=== PATIENT | male | born 1965 | race Caucasian/White ===

== ENCOUNTER 2017-02-16 23:50 | Inpatient (IN) | payer OTHER ==
[~2017-02-16] VITALS: Ht 172.7 cm; Wt 93.0 kg
[2017-02-17 01:16] LABS: BASOPHIL % 0.6 % (0-2); PLATELET COUNT 203 x10^3mcL (130-400); RED CELL DISTRIBUTION WIDTH 12.7 % (11.5-14.5)
[2017-02-17 01:31] LABS: CALCIUM 9.7 mg/dL (8.5-10.1); CARBON DIOXIDE 26.7 mmol/L (21-32); CHLORIDE SERUM 93 mmol/L (98-107); CREATININE SERUM 1.1 mg/dL (0.7-1.3); GFR1 > 60 mL/min; SODIUM SERUM 125 mmol/L (136-145)
[2017-02-17 01:33] LABS: ALBUMIN 3.9 g/dL (3.4-5.0); ALKALINE PHOSPHATASE 198 U/L (46-116); ALT/SGPT 32 U/L (16-63); AST/SGOT 16 U/L (15-37); BILIRUBIN TOTAL 0.74 mg/dL (0.20-1.00); TOTAL PROTEIN, SERUM 7.7 g/dL (6.4-8.2)
[2017-02-17 01:47] LABS: GLUCOSE SERUM 753 mg/dL (74-106)
[2017-02-17 03:30] LABS: LIPASE 317 IU/L (73-393); MAGNESIUM 2.1 mg/dL (1.8-2.4); PHOSPHOROUS 4.4 mg/dL (2.5-4.9)
[2017-02-17 03:31] LABS: AMYLASE 21 U/L (25-115); CHOLESTEROL 221 mg/dL (<200); CHOLESTEROL/HDL RATIO 7.4; HDL CHOLESTEROL 30 mg/dL (40-60); TRIGLYCERIDES 459 mg/dL (<150)
[2017-02-17 03:36] LABS: T3 TOTAL 1.12 ng/mL
[2017-02-17 03:48] LABS: FREE T4 1.23 ng/dL (0.76-1.46); FREE THYROXINE INDEX 3.7 ug/dL (1.4-4.5); T4(THYROXINE) 10.5 ug/dL (4.7-13.3)
[2017-02-17 03:54] VITALS: BP 122/81
[2017-02-17 06:03] VITALS: BP 113/70
[2017-02-17 09:32] VITALS: BP 97/57
[2017-02-17 14:13] VITALS: BP 117/65
[2017-02-17 17:19] VITALS: BP 106/65
[2017-02-17 17:39] LABS: CALCIUM 8.5 mg/dL (8.5-10.1); CHLORIDE SERUM 98 mmol/L (98-107); CREATININE SERUM 0.8 mg/dL (0.7-1.3); GFR1 > 60 mL/min; GLUCOSE SERUM 305 mg/dL (74-106); POTASSIUM SERUM 3.5 mmol/L (3.5-5.1); SODIUM SERUM 137 mmol/L (136-145)
[2017-02-17 20:28] LABS: microscopic required? NO
[2017-02-17 21:52] LABS: UA SPECIFIC GRAVITY 1.015 (1.005-1.035); urine erythrocyte NEGATIVE (NEGATIVE)
[2017-02-17 22:12] VITALS: BP 103/61
[2017-02-18 06:05] VITALS: BP 103/54
[2017-02-18 06:30] LABS: BASOPHIL % 0.7 % (0-2); PLATELET COUNT 186 x10^3mcL (130-400); RED CELL DISTRIBUTION WIDTH 12.7 % (11.5-14.5)
[2017-02-18 06:49] LABS: CALCIUM 8.5 mg/dL (8.5-10.1); CARBON DIOXIDE 28.9 mmol/L (21-32); CHLORIDE SERUM 108 mmol/L (98-107); CREATININE SERUM 0.8 mg/dL (0.7-1.3); GFR1 > 60 mL/min; GLUCOSE SERUM 150 mg/dL (74-106); MAGNESIUM 1.8 mg/dL (1.8-2.4); PHOSPHOROUS 3.4 mg/dL (2.5-4.9); POTASSIUM SERUM 3.5 mmol/L (3.5-5.1); SODIUM SERUM 144 mmol/L (136-145)
[2017-02-18 08:30] VITALS: BP 122/76
[2017-02-18 09:54] VITALS: BP 122/76
[2017-02-18] MEDS ORDERED: LIPI10 PO (11:03)
[2017-02-18] MEDS ORDERED: METFORMIN HCL1000 MG PO (11:04)
[2017-02-18] MEDS ORDERED: LEVEMIR100 U/M1 SC (11:10)
[2017-02-18 12:53] VITALS: BP 124/76
== END 2017-02-18 16:15 | disposition home or self-care (01) | DRG 638 ==
LOC: ED 23:50 → DU 02-17 02:24 → MU 02-17 02:24 → DU 02-17 03:29 → MU 02-17 05:47 → DU 02-17 10:32
PROVIDERS: Emergency Medicine; ADMIT Family Medicine
DX: E11.65 Type 2 diabetes mellitus with hyperglycemia (principal); E87.1 Hypo-osmolality and hyponatremia; E78.5 Hyperlipidemia, unspecified; E87.8 Other disorders of electrolyte and fluid balance, not elsewhere classified; E66.9 Obesity, unspecified; Z68.31 Body mass index [BMI] 31.0-31.9, adult; Z89.421 Acquired absence of other right toe(s); Z83.3 Family history of diabetes mellitus; G90.9 Disorder of the autonomic nervous system, unspecified
CPT/HCPCS: 83880; 84439; J1815; J7030; Q0092

== ENCOUNTER → 2017-05-09 | Outpatient (CLI) | payer OTHER ==
[~2017-05-09] MED LIST: LEVEMIR100 U/M1 SC; LIPI10 PO; METFORMIN HCL1000 MG PO
[2017-05-09 11:11] LABS: BASOPHIL % 0.8 % (0-2); PLATELET COUNT 223 x10^3mcL (130-400); RED CELL DISTRIBUTION WIDTH 13.2 % (11.5-14.5)
[2017-05-09 11:20] LABS: ALBUMIN 4.1 g/dL (3.4-5.0); ALKALINE PHOSPHATASE 97 U/L (46-116); ALT/SGPT 34 U/L (16-63); AST/SGOT 34 U/L (15-37); BILIRUBIN TOTAL 0.7 mg/dL (0.20-1.00); CALCIUM 9.5 mg/dL (8.5-10.1); CARBON DIOXIDE 29.5 mmol/L (21-32); CHLORIDE SERUM 103 mmol/L (98-107); CREATININE SERUM 0.8 mg/dL (0.7-1.3); GFR1 > 60 mL/min; GLUCOSE SERUM 95 mg/dL (74-106); HDL CHOLESTEROL 53 mg/dL (40-60); SODIUM SERUM 142 mmol/L (136-145); TOTAL PROTEIN, SERUM 8.1 g/dL (6.4-8.2); TRIGLYCERIDES 46 mg/dL (<150)
[2017-05-09 11:21] LABS: CHOLESTEROL 118 mg/dL (<200); CHOLESTEROL/HDL RATIO 2.2
[2017-05-09 15:13] LABS: T3 TOTAL 1.12 ng/mL
[2017-05-09 15:54] LABS: FREE T4 0.99 ng/dL (0.76-1.46); FREE THYROXINE INDEX 3.2 ug/dL (1.4-4.5); T4(THYROXINE) 9.6 ug/dL (4.7-13.3)
[2017-05-10 10:51] LABS: microalbumin:creatinine ratio 4.6 (0.0-30.0)
== END | disposition home or self-care (01) ==
LOC: LB 10:41
PROVIDERS: Family Medicine
DX: E11.9 Type 2 diabetes mellitus without complications (principal)
CPT/HCPCS: 84439

== ENCOUNTER 2017-05-15 19:38 | Emergency (ER) | payer OTHER ==
[2017-05-15 21:21] VITALS: BP 119/75
== END 2017-05-15 21:21 | disposition home or self-care (01) ==
LOC: ED 19:38
DX: L72.3 Sebaceous cyst (principal); E11.9 Type 2 diabetes mellitus without complications
CPT/HCPCS: J1885

== ENCOUNTER 2017-05-22 19:32 | Inpatient (IN) | payer OTHER, MEDICAID ==
[~2017-05-22] VITALS: Ht 172.7 cm; Wt 82.2 kg
[2017-05-22] MEDS ORDERED: FARXIGA5 MG PO (20:42)
[2017-05-22] MEDS ORDERED: LEVOFLOXACIN500 M1 PO (20:42)
[2017-05-22 20:43] LABS: BASOPHIL % 0.6 % (0-2); PLATELET COUNT 232 x10^3mcL (130-400); RED CELL DISTRIBUTION WIDTH 13.3 % (11.5-14.5)
[2017-05-22] MEDS ORDERED: CLEOCIN HCL300 MG PO (20:43)
[2017-05-22 20:51] LABS: CALCIUM 9.6 mg/dL (8.5-10.1); CARBON DIOXIDE 30.1 mmol/L (21-32); CHLORIDE SERUM 101 mmol/L (98-107); CREATININE SERUM 0.9 mg/dL (0.7-1.3); GFR1 > 60 mL/min; GLUCOSE SERUM 105 mg/dL (74-106); POTASSIUM SERUM 3.5 mmol/L (3.5-5.1); SODIUM SERUM 138 mmol/L (136-145)
[2017-05-22 20:57] LABS: ALBUMIN 3.8 g/dL (3.4-5.0); ALKALINE PHOSPHATASE 99 U/L (46-116); ALT/SGPT 25 U/L (16-63); AST/SGOT 16 U/L (15-37); BILIRUBIN TOTAL 0.5 mg/dL (0.20-1.00)
[2017-05-22 21:19] LABS: FREE T4 1.02 ng/dL (0.76-1.46); FREE THYROXINE INDEX 3.3 ug/dL (1.4-4.5); T4(THYROXINE) 9.4 ug/dL (4.7-13.3)
[2017-05-22 21:20] LABS: CHOLESTEROL/HDL RATIO 3.7; PHOSPHOROUS 4.3 mg/dL (2.5-4.9)
[2017-05-22 21:22] LABS: T3 TOTAL 1.12 ng/mL
[2017-05-22 21:39] VITALS: BP 103/67
[2017-05-22 21:43] VITALS: Ht 172.7 cm; Wt 82.2 kg
[2017-05-22 21:48] VITALS: BP 103/67
[2017-05-23 05:00] LABS: microscopic required? YES; urine erythrocyte TRACE (NEGATIVE)
[2017-05-23 05:30] VITALS: BP 103/66
[2017-05-23 06:23] LABS: CALCIUM 9.1 mg/dL (8.5-10.1); CARBON DIOXIDE 28.5 mmol/L (21-32); CHLORIDE SERUM 107 mmol/L (98-107); CREATININE SERUM 0.9 mg/dL (0.7-1.3); GFR1 > 60 mL/min; GLUCOSE SERUM 95 mg/dL (74-106); POTASSIUM SERUM 3.9 mmol/L (3.5-5.1); SODIUM SERUM 141 mmol/L (136-145)
[2017-05-23 06:27] LABS: BASOPHIL % 0.8 % (0-2); PLATELET COUNT 220 x10^3mcL (130-400); RED CELL DISTRIBUTION WIDTH 12.9 % (11.5-14.5)
[2017-05-23 10:16] VITALS: BP 105/67
[2017-05-23 14:11] VITALS: BP 103/70
[2017-05-23 18:00] VITALS: BP 109/76
[2017-05-23 21:01] VITALS: BP 109/70
[2017-05-24 06:07] VITALS: BP 97/61
[2017-05-24 06:14] LABS: CHLORIDE SERUM 108 mmol/L (98-107); CREATININE SERUM 0.8 mg/dL (0.7-1.3); GFR1 > 60 mL/min; GLUCOSE SERUM 84 mg/dL (74-106); MAGNESIUM 2.1 mg/dL (1.8-2.4); PHOSPHOROUS 3.2 mg/dL (2.5-4.9); POTASSIUM SERUM 3.6 mmol/L (3.5-5.1); SODIUM SERUM 144 mmol/L (136-145)
[2017-05-24 06:15] LABS: BASOPHIL % 0.9 % (0-2); PLATELET COUNT 216 x10^3mcL (130-400); RED CELL DISTRIBUTION WIDTH 13.2 % (11.5-14.5)
[2017-05-24 13:46] VITALS: BP 119/77
[2017-05-24 18:07] VITALS: BP 107/68
[2017-05-24 22:33] VITALS: BP 102/67
[2017-05-25 06:29] LABS: CALCIUM 9.3 mg/dL (8.5-10.1); CARBON DIOXIDE 30.5 mmol/L (21-32); CHLORIDE SERUM 107 mmol/L (98-107); CREATININE SERUM 0.9 mg/dL (0.7-1.3); GFR1 > 60 mL/min; GLUCOSE SERUM 90 mg/dL (74-106); MAGNESIUM 2.3 mg/dL (1.8-2.4); PHOSPHOROUS 3.5 mg/dL (2.5-4.9); POTASSIUM SERUM 4.5 mmol/L (3.5-5.1); SODIUM SERUM 144 mmol/L (136-145)
[2017-05-25 06:44] VITALS: BP 111/72
[2017-05-25 07:05] LABS: BASOPHIL % 0.8 % (0-2); PLATELET COUNT 223 x10^3mcL (130-400); RED CELL DISTRIBUTION WIDTH 13.2 % (11.5-14.5)
[2017-05-25 09:20] VITALS: BP 97/63
[2017-05-25] MEDS ORDERED: LEVOFLOXACIN500 M1 PO (11:48)
[2017-05-25] MEDS ORDERED: CLEOCIN HCL300 MG PO (11:50)
[2017-05-25] MEDS ORDERED: LAC PO (11:50)
[2017-05-25] MEDS ORDERED: NOR10T PO (12:18)
[2017-05-25 14:25] VITALS: BP 111/71
[2017-05-25 15:13] VITALS: BP 111/71
== END 2017-05-25 16:20 | disposition home or self-care (01) | DRG 580 ==
LOC: ED 19:32 → DU 20:20 → MU 20:20 → DU 21:13 → MU 05-24 11:34
PROVIDERS: Emergency Medicine; ADMIT Family Medicine
PROC: 0J9M0ZZ Drainage of Left Upper Leg Subcutaneous Tissue and Fascia, Open Approach (ICD-10-PCS; principal; 2017-05-22)
DX: L03.115 Cellulitis of right lower limb (principal); D68.69 Other thrombophilia; E11.9 Type 2 diabetes mellitus without complications; L72.0 Epidermal cyst; M10.9 Gout, unspecified; Z68.27 Body mass index [BMI] 27.0-27.9, adult; Z89.411 Acquired absence of right great toe; Z79.4 Long term (current) use of insulin; Z79.84 Long term (current) use of oral hypoglycemic drugs
CPT/HCPCS: 82962; 83880; 84439; J1644; J1815; J2001; J2270; J3010; J3490; J7030; Q0092

== ENCOUNTER → 2018-05-31 | Outpatient (CLI) | payer OTHER ==
[~2018-05-31] MED LIST changes: +CLEOCIN HCL300 MG PO; +FARXIGA5 MG PO; +LAC PO; +LEVOFLOXACIN500 M1 PO; +NOR10T PO
[2018-05-31 11:17] LABS: BASOPHIL % 1.1 % (0-2); PLATELET COUNT 210 x10^3mcL (130-400); RED CELL DISTRIBUTION WIDTH 13.2 % (11.5-14.5)
[2018-05-31 11:33] LABS: ALKALINE PHOSPHATASE 80 U/L (46-116); ALT/SGPT 27 U/L (16-63); AST/SGOT 19 U/L (15-37); BILIRUBIN TOTAL 0.4 mg/dL (0.20-1.00); CALCIUM 9.2 mg/dL (8.5-10.1); CHLORIDE SERUM 105 mmol/L (98-107); CHOLESTEROL 199 mg/dL (<200); CHOLESTEROL/HDL RATIO 5.5; GFR1 > 60 mL/min; GLUCOSE SERUM 99 mg/dL (74-106); HDL CHOLESTEROL 36 mg/dL (40-60); POTASSIUM SERUM 4.2 mmol/L (3.5-5.1); SODIUM SERUM 143 mmol/L (136-145); TOTAL PROTEIN, SERUM 7.9 g/dL (6.4-8.2); TRIGLYCERIDES 243 mg/dL (<150)
[2018-06-01 13:21] LABS: microalbumin:creatinine ratio 5.1 (0.0-30.0)
== END | disposition home or self-care (01) ==
LOC: LB 10:20
DX: E11.9 Type 2 diabetes mellitus without complications (principal); E78.5 Hyperlipidemia, unspecified

== ENCOUNTER 2018-07-06 19:40 | Emergency (ER) | payer OTHER ==
[~2018-07-06] VITALS: Ht 175.3 cm; Wt 85.3 kg
[2018-07-06 20:33] VITALS: Ht 175.3 cm; Wt 85.3 kg
[2018-07-06 22:13] VITALS: BP 111/74
== END 2018-07-06 22:13 | disposition home or self-care (01) ==
LOC: ED 19:40
DX: M54.40 Lumbago with sciatica, unspecified side (principal); E11.9 Type 2 diabetes mellitus without complications

== ENCOUNTER 2019-01-12 21:16 | Emergency (ER) | payer OTHER ==
[~2019-01-12] VITALS: Ht 172.7 cm; Wt 85.3 kg
[2019-01-12 21:40] VITALS: Ht 172.7 cm; Wt 85.3 kg
[2019-01-12 22:40] LABS: BASOPHIL % 0.3 % (0-2); PLATELET COUNT 199 x10^3mcL (130-400); RED CELL DISTRIBUTION WIDTH 13.5 % (11.5-14.5)
[2019-01-12 23:45] VITALS: BP 106/73
== END 2019-01-12 23:45 | disposition home or self-care (01) ==
LOC: ED 21:16
PROVIDERS: Emergency Medicine
DX: B34.9 Viral infection, unspecified (principal); E11.9 Type 2 diabetes mellitus without complications; M10.9 Gout, unspecified
CPT/HCPCS: 36415; 87804

== ENCOUNTER → 2020-04-19 | Outpatient (CLI) | payer OTHER ==
[2020-04-19 12:11] LABS: BASOPHIL % 0.8 % (0-2); PLATELET COUNT 201 x10^3mcL (130-400); RED CELL DISTRIBUTION WIDTH 13.5 % (11.5-14.5)
[2020-04-19 12:47] LABS: ALKALINE PHOSPHATASE 111 U/L (46-116); ALT/SGPT 46 U/L (16-63); AST/SGOT 28 U/L (15-37); BILIRUBIN DIRECT 0.15 mg/dL (0.0-0.2); BILIRUBIN TOTAL 0.92 mg/dL (0.20-1.00); CARBON DIOXIDE 26.7 mmol/L (21-32); CHLORIDE SERUM 101 mmol/L (98-107); GFR1 > 60 mL/min; GLUCOSE SERUM 155 mg/dL (74-106); POTASSIUM SERUM 3.9 mmol/L (3.5-5.1); SODIUM SERUM 135 mmol/L (136-145); TOTAL PROTEIN, SERUM 7.5 g/dL (6.4-8.2)
[2020-04-19 12:51] LABS: TRIGLYCERIDES 292 mg/dL (<150)
[2020-04-19 12:52] LABS: CHOLESTEROL 251 mg/dL (<200); CHOLESTEROL/HDL RATIO 7.6; HDL CHOLESTEROL 33 mg/dL (40-60)
== END | disposition home or self-care (01) ==
LOC: LB 11:21 → GI 11:21
PROVIDERS: ATTEND Internal Medicine
DX: Z00.00 Encounter for general adult medical examination without abnormal findings (principal)
CPT/HCPCS: 84153; 84402; 84403

== ENCOUNTER 2020-05-24 08:24 | Inpatient (IN) | payer OTHER ==
[~2020-05-24] VITALS: Ht 172.7 cm; Wt 90.7 kg
--- NOTE | 2020-05-24 08:34 | NUR ---
GAVE TYLENOL 1g AND IBUPROFEN 600mg FOR TEMP GREATER THAN 100.4, PT ORAL TEMP 101.1
--- NOTE | 2020-05-24 09:15 | NUR ---
PATIENT ARRIVED FROM HOME, C/O SOB, CHEST PAIN, COUGH, DIARRHEA, ABDOMEN PAIN, FEVER, CHILLS AND BODYACHES X2 WEEKS, WORSEN THE PAST 4-5 DAYS. PATIENT STATES TESTED +COVID19 X1 WEEK, PATIENT DENIES GETTING TESTED FOR COVID19, TRAVELING OR ANY OTHER SYMPTOMS AT THIS TIME. PATIENT AAOX4, PATIENT MOANING OF DISCOMFORT AT THIS TIME. PATIENT GOWNED, SAFETY PRECAUTIONS IN PLACE, AWAITNG MSE, CALL LIGHT WITHIN REACH. PRYDEINIG SPEAKER ONLY
--- NOTE | 2020-05-24 09:32 | NUR ---
XRAY AT BEDSIDE AT THIS TIME
--- NOTE | 2020-05-24 09:34 | NUR ---
DR. GIFFORD AT BEDSIDE FOR MSE AT THIS TIME
--- NOTE | 2020-05-24 09:53 | NUR ---
LAB AND RT AT BEDSIDE AT THIS TIME
[2020-05-24 10:34] LABS: CALCIUM 9.4 mg/dL (8.5-10.1); CHLORIDE SERUM 99 mmol/L (98-107); CREATININE SERUM 1.2 mg/dL (0.7-1.3); GFR1 > 60 mL/min; GLUCOSE SERUM 162 mg/dL (74-106); POTASSIUM SERUM 3.4 mmol/L (3.5-5.1); SODIUM SERUM 135 mmol/L (136-145)
[2020-05-24 10:38] LABS: ALBUMIN 3.7 g/dL (3.4-5.0); ALKALINE PHOSPHATASE 94 U/L (46-116); ALT/SGPT 45 U/L (16-63); AST/SGOT 35 U/L (15-37); BILIRUBIN TOTAL 1.19 mg/dL (0.20-1.00); C REACTIVE PROTEIN 5.1 mg/dL (<=0.9); LACTIC DEHYDROGENASE (LDH) 242 U/L (100-190)
[2020-05-24 10:39] LABS: BASOPHIL % 0.5 % (0-2); PLATELET COUNT 202 x10^3mcL (130-400); RED CELL DISTRIBUTION WIDTH 11.9 % (11.5-14.5)
[2020-05-24 10:40] LABS: TOTAL PROTEIN, SERUM 8.4 g/dL (6.4-8.2)
--- NOTE | 2020-05-24 11:05 | NUR ---
PATIENT LYING IN BED AWAKE, NAD NOTED AT THIS TIME. PATIENT DENIES ANY PAIN AT THIS TIME. CALL LIGHT WITHIN REACH.
[2020-05-24 11:45] LABS: microscopic required? YES; urine erythrocyte TRACE (NEGATIVE)
--- NOTE | 2020-05-24 12:17 | NUR ---
PATIENT LYING IN BED AWAKE, LOOKING AT PHONE, NAD AT THIS TIME. CALL LIGHT WITHIN REACH.
--- NOTE | 2020-05-24 14:04 | NUR ---
PROVIDE PATIENT WITH LUNCH TRAY. NAD NOTED AT THIS TIME, CALL LIGHT WITHIN REACH.
--- NOTE | 2020-05-24 14:19 | NUR ---
REPORT GIVEN TO TELE CHARGE NURSE ISAIAH RUSSO, ALL QUESTIONS ADDRESSED.
--- NOTE | 2020-05-24 14:24 | NUR ---
PATIENT BELONGINGS INCLUDE: CLOTHES, SHOES, CELL PHONE.
--- NOTE | 2020-05-24 14:25 | NUR ---
PATIENT ATE 50% OF FOOD.
[2020-05-24 15:15] VITALS: Ht 172.7 cm; Wt 90.7 kg
--- NOTE | 2020-05-24 15:45 | NUR ---
PT ADMITTED FROM ED VIA GURNEY. PT AOX4 ABLE TO MAKE NEEDS KNOWN. RR EVEN AND UNLABORED ON RA. IV IN RAC CDI WITH NO REDNESS OR SWELLING. PT AMBULATORY. SKIN INTACT. PT EDUCATED HONING MACHINE TRY OUT SETTER LIGHT USAGE. ALL NEEDS MEET AT THIS TIME. BED LOCKED IN LOWEST POSITION. BED RAILS UPX2. WILL CONTINUE TO MONITOR.
[2020-05-24 15:59] VITALS: BP 102/65
--- NOTE | 2020-05-24 20:00 | NUR ---
RECIEVED PATIENT AWAKE SITTING UP IN BED. A/O X4. RESPIRATIONS EVEN AND UNLABORED. PATIENT IS ON ROOM AIR WITH O2 SAT OF 97%. DEINES SOB OR PAIN AT THIS TIME. NO ACUTE DISTESS NOTED. WILL CONTINUE TO MONITOR FOR SAFETY. Maame LUTZ RN.
[2020-05-24 21:33] VITALS: BP 117/73
[2020-05-25 06:10] VITALS: BP 115/75
--- NOTE | 2020-05-25 06:11 | NUR ---
PATIENT SLEPT WELL THROUGHOUT THE NIGHT. NO RESP DISTRESS NOTED AND NO COMPLAINTS OF PAIN. PATIENT REMAINS IN STABLE CONDITION. Maame LUTZ RN
[2020-05-25 07:38] LABS: PLATELET COUNT 200 x10^3mcL (130-400); RED CELL DISTRIBUTION WIDTH 11.9 % (11.5-14.5)
--- NOTE | 2020-05-25 07:45 | NUR ---
PT. RECEIVED IN BED ASLEEPING BUT EASILY AWAKE TO NAME.CARE ASSURED.NO ACUTE DISTRESS NOTED.NO ACUTE SOB, ON ROOM AIR, SATTING 97%.CLEAR UPPER AND DIMINISHES @ BASES.NSR ON THE MONITOR.ACTIVE BOWELS.VOIDS VIA URINAL @ BEDSIDE.SKIN WARM AND DRY TO TOUCH.VSS.AFEBRILE. CALL LIGHT WITHIN REACH.
[2020-05-25 07:49] LABS: CALCIUM 8.5 mg/dL (8.5-10.1); CARBON DIOXIDE 25.1 mmol/L (21-32); CHLORIDE SERUM 102 mmol/L (98-107); GFR1 > 60 mL/min; GLUCOSE SERUM 103 mg/dL (74-106); POTASSIUM SERUM 3.8 mmol/L (3.5-5.1); SODIUM SERUM 137 mmol/L (136-145)
[2020-05-25 08:43] LABS: BASOPHIL % 2.1 % (0-2)
[2020-05-25 09:04] VITALS: BP 107/68
[2020-05-25 11:56] VITALS: BP 109/67
--- NOTE | 2020-05-25 14:58 | NUR ---
PT. AWAKE AND ALERT,RESTING QUIETLY IN BED.C/O HEADACHES AND TYLENOL GIVEN WITH EFFECTIVE RESULT.ROOM AIR @ THIS TIME.NO ACUTE SOB NOTED,UNLABORED BREATH NOTED.VSS.AFEBRILE.NEEDS ARE BEING MET.
[2020-05-25 15:42] VITALS: BP 100/61
--- NOTE | 2020-05-25 19:30 | NUR ---
PATIENT IS A/O X4. ON TELE 35. NSR WITH ELEVATED ST WAVE. NO EDEMA NOTED. ON ROOM AIR. LUNG SOUNDS DIMINISHED AT BASES. HYPOACTIVE BOWEL SOUNDS. LAST BM 05/22/20. DENIES ABD PAIN. PRODUCTIVE COUGH NOTED. CLEAR PHLEGM. AMBULATORY. SKIN INTACT. DENIES ANY PAIN AT THIS TIME. RAC 18 G. CDI. BED IN LOWEST AND LOCKED POSITION. CALL LIGHT WITHIN REACH. WILL CONT TO MONITOR.
[2020-05-25 20:15] VITALS: BP 94/55
--- NOTE | 2020-05-26 00:10 | NUR ---
PATIENT STATED HE HAD A MARKS 09/29. REMOVED MY PPE. AFTER REMOVING MY PPE AND RECIEVING THE TYLENOL OUT OF THE PIXUS, THE PATIENT HAD FALLEN ASLEEP. PATIENT STATED IF HE HAD FALLEN ASLEEP BY THE TIME I RETURNED, THEN HE NO LONGER WANTED THE TYLENOL. RETURNED THE TYLENOL TO THE PIXUS. PATIENT IS BREATHING E/U. NO DISTRESS NOTED. WILL CONT TO MONITOR PATIENT.
[2020-05-26 01:20] VITALS: BP 106/65
--- NOTE | 2020-05-26 01:38 | NUR ---
PATIENT C/O MARKS 09/29. HE WAS ALSO C/O FEVER. CHECKED HIS TEMPERATURE AND IT WAS 98 F. GAVE TYLENOL PRESCRIBED FOR MARKS. WILL F/U FOR EFFECT OF MEDICATION.
--- NOTE | 2020-05-26 04:15 | NUR ---
PATIENTS CURRENT AND NEW RHYTHM IS NSR WITH BBB. VITALS ARE CHARTED AND WNL. PATIENT ONLY C/O GENERAL BODY ACHES. DR CAMPOS MADE AWARE.
[2020-05-26 04:31] VITALS: BP 98/61
--- NOTE | 2020-05-26 07:10 | NUR ---
RECEIVED REPORT FROM ELECTROLYSIS OPERATOR RN. PT IN BED AWAKE AND ALERT. ON DROPLET PRECAUTION FOR COVID19. ON ROOM AIR, NO ACUTE RESPIRATORY DISTRESS. DENIES PAIN OR DISCOMFORT AT THIS TIME. ON TELE 6, DENIES CHEST PAIN/PRESSURE. IV SITE TO RAC AND RFA SALINE LOCK. CALL LIGHT WITHIN REACH. WILL CONTINUE TO MONITOR.
--- NOTE | 2020-05-26 07:10 | NUR ---
RECEIVED REPORT FROM SECURITIES DEALER RN. PT IN BED AWAKE AND ALERT. ON DROPLET PRECAUTION FOR COVID19. ON ROOM AIR, NO ACUTE RESPIRATORY DISTRESS. DENIES PAIN OR DISCOMFORT AT THIS TIME. ON TELE 35, DENIES CHEST PAIN/PRESSURE. IV SITE TO RAC WITH NS AT 50CC/HR. CALL LIGHT WITHIN REACH. WILL CONTINUE TO MONITOR.
[2020-05-26 07:39] LABS: BASOPHIL % 0.7 % (0-2); PLATELET COUNT 221 x10^3mcL (130-400)
[2020-05-26 07:54] LABS: CALCIUM 8.6 mg/dL (8.5-10.1); CARBON DIOXIDE 25.7 mmol/L (21-32); CHLORIDE SERUM 102 mmol/L (98-107); CREATININE SERUM 0.9 mg/dL (0.7-1.3); GFR1 > 60 mL/min; GLUCOSE SERUM 114 mg/dL (74-106); POTASSIUM SERUM 3.5 mmol/L (3.5-5.1); SODIUM SERUM 137 mmol/L (136-145)
[2020-05-26 08:19] VITALS: BP 116/77
[2020-05-26 11:30] VITALS: BP 112/76
[2020-05-26 15:49] VITALS: BP 112/72
--- NOTE | 2020-05-26 18:32 | NUR ---
PT IN BED AWAKE AND ALERT. ON DROPLET PRECAUTION FOR COVID 19. ON RA, NO ACUTE RESPIRATORY DISTRESS. DENIES PAIN OR DISCOMFORT AT THIS TIME. IV SITE TO RAC WITH NS AT 50CC/HR. ALL NEEDS ATTENDED TO. BED IN LOWEST POSITION. CALL LIGHT WITHIN REACH. WILL ENDORSE ADDITIONAL CARE TO INCOMING RN.
--- NOTE | 2020-05-26 19:45 | NUR ---
PATIENT IS A/O X4. NSR. DENIES CHEST PAIN AND CHEST PRESSURE. NO EDEMA NOTED. ON ROOM AIR. DIMINISHED AT BASES. PRODUCTIVE COUGH NOTED. CLEAR PHLEGM. NORMOACTIVE BOWEL SOUNDS X4. LAST BM 05/26/20. DIARRHEA. URINAL AT BEDSIDE. AMBULATORY. DENIES ANY PAIN AT THIS TIME. NS RUNNING AT 50 MLS/HR. BED IN LOWEST AND LOCKED POSITION. CALL LIGHT WITHIN REACH. WILL CONT TO MONITOR.
[2020-05-26 21:11] VITALS: BP 106/65
--- NOTE | 2020-05-26 23:35 | NUR ---
PATIENT C/O MARKS 10/29. GAVE TYLENOL PRESCRIBED FOR MILD PAIN. WILL F/U FOR EFFECT OF MEDICATION.
--- NOTE | 2020-05-27 04:50 | NUR ---
PATIENT IS RESTING IN BED WITH EYES CLOSED. BREATHING E/U. NO DISTRESS NOTED. WILL CONT TO MONITOR.
[2020-05-27 05:14] VITALS: BP 102/68
--- NOTE | 2020-05-27 05:45 | NUR ---
PATIENT STATED HE HAD DIFFICULTY BREATHING. WENT INTO ROOM AND AND PATIENTS BREATHING LOOKED E/U. LISTENED TO LUNG SOUNDS. DIMINISHED AT BASES, NO CHANGES FROM EARLIER. SATURATION AT 96% ON RA. VITALS WNL AND CHARTED. HE ALSO STATED HE FELT LIKE HIS ESOPHAGUS WAS OBSTRUCTED WHEN HE IS ABOUT TO FALL ASLEEP. HE STATES HE WAKES UP CATHCING HIS BREATH. I ASKED IF HE HAD A HISTORY OF SLEEP APNEA. HE STATED HE DID BUT HE DOES NOT HAVE A CPAP/BIPAP MACHINE AT HOME. HE STATES THIS HAS BEEN DIAGNOSED FOR SEVERAL YEARS. PATIENT IS NOT ON CONT PULSE OX. REFERRED TO PATIENT THAT HE SHOULD SPEAK WITH HIS PCP ABOUT FURTHER DOING SLEEP STUDIES ON AN OUTPATIENT BASIS. ALTHOUGH, WILL ALSO ENDORSE THIS TO AM SHIFT NURSE TO ENDORSE TO SAP TREASURY CONSULTANT.
--- NOTE | 2020-05-27 07:15 | NUR ---
RECEIVED REPORT FROM RETAIL PLANNER RN. PT IN BED AWAKE AND ALERT. ON DROPLET PRECAUTION FOR COVID19. ON ROOM AIR, NO ACUTE RESPIRATORY DISTRESS. DENIES PAIN/DISCOMFORT AT THIS TIME. ON TELE 35, 69HR, DENIES CHEST PAIN/PRESSURE. IV SITE TO RAC WITH NS AT 50CC/HR. CALL LIGHT WITHIN REACH. WILL CONTINUE TO MONITOR.
[2020-05-27 07:19] LABS: BASOPHIL % 0.5 % (0-2); PLATELET COUNT 265 x10^3mcL (130-400); RED CELL DISTRIBUTION WIDTH 12.9 % (11.5-14.5)
[2020-05-27 07:28] LABS: CALCIUM 8.8 mg/dL (8.5-10.1); CARBON DIOXIDE 25.4 mmol/L (21-32); CHLORIDE SERUM 103 mmol/L (98-107); CREATININE SERUM 0.9 mg/dL (0.7-1.3); GFR1 > 60 mL/min; GLUCOSE SERUM 105 mg/dL (74-106); POTASSIUM SERUM 3.8 mmol/L (3.5-5.1); SODIUM SERUM 138 mmol/L (136-145)
[2020-05-27 08:40] VITALS: BP 113/73
[2020-05-27] MEDS ORDERED: ZINC SULFATE220 MG PO (10:35)
[2020-05-27] MEDS ORDERED: MUCINEX600 MG PO (10:35)
[2020-05-27] MEDS ORDERED: VENTOLIN H0.09 MG/A1 INH (10:35)
[2020-05-27] MEDS ORDERED: VITC PO (10:36)
[2020-05-27 12:15] VITALS: BP 116/82
--- NOTE | 2020-05-27 13:00 | NUR ---
PATIENT WITH DISCHARGE ORDER TO GO HOME. PT SIGNED DISCHARGE FORM/INVENTORY. INSTRUCTED TO FOLLOW UP WITH PCP AND SCHEDULED APPTS. TEACHING GIVEN REGARDING PRESCRIPTION MEDICATIONS. ALL QUESTIONS AND CONCERN ADDRESSED, NO FURTHER QUESTION AT THIS TIME. PER PT. WILL BE PICKED UP BY . CALL LIGHT WITHIN REACH.
--- NOTE | 2020-05-27 14:13 | NUR ---
PT LEFT THE UNIT VIA W/C WITH FACEMASK. D/C IV FROM RAC, NO NOTED BLEEDING. D/C TELE 35. LEFT ON RA, DENIES SOB. DENIES PAIN OR DISCOMFORT AT THIS TIME. PT WHEELED TO THE LOBBY BY STU, LEFT VIA PRIVATE CAR.
== END 2020-05-27 14:12 | disposition home or self-care (01) | DRG 177 ==
LOC: ED 08:24 → DU 12:26
PROVIDERS: Emergency Medicine; ADMIT Internal Medicine; ATTEND Internal Medicine
DX: U07.1 COVID-19 (principal); J12.89 Other viral pneumonia; E11.9 Type 2 diabetes mellitus without complications; I10 Essential (primary) hypertension; M10.9 Gout, unspecified; Z79.899 Other long term (current) drug therapy
CPT/HCPCS: 36600; 82962; 83880; 85378; 87804; 94150; G0378; J0696; J1650; J3535; J7030; U0003